=== PATIENT | female | born 1945 | race African-American/Black ===

== ENCOUNTER 2018-11-14 17:24 | Emergency (ER) | payer OTHER ==
--- OUTSIDE RECORDS SUMMARY | 2018-11-14 17:26 | XMS REPORT | Clinical Summary ---
:1945 Author Organization [facility] Address [address] [place] [address] Care Team Providers Name Role Phone Asked, No Pcp Primary Care Provider Unavailable Allergies Active Allergy Reactions Severity Noted Date Comments No Known Drug Allergies 02/15/2016 Medications Not on file Active Problems Problem Noted Date HTN (hypertension) 03/19/2016 Diabetes mellitus 03/19/2016 Gout 03/19/2016 TIA (transient ischemic attack) 03/19/2016 Overview: 2016 Anemia of chronic disease 02/20/2016 Anemia of renal disease 02/15/2016 Chronic renal failure 02/15/2016 Family History Medical History Relation Name Comments Diabetes Brother Prostate cancer Brother Malignant tumor of prostate; 2 brothers Lung cancer Father Malignant tumor of lung Diabetes Maternal Grandmother Lung cancer Mother Malignant tumor of lung Sickle cell anemia Other nephew Breast cancer Sister Diabetes Sister Relation Name Status Comments Brother Father (Age 67) smoker Maternal Grandmother Mother (Age 60's) Smoker Other nephew Alive Sister (Age 70) Sister Social History Tobacco Use Types Packs/Day Years Used Date Unknown If Ever Smoked Sex Assigned at Date Recorded Not on file Job Start Date Occupation Industry Not on file Not on file Not on file Travel History Travel Start Travel End No recent travel history available. Last Filed Vital Signs Not on file Plan of Treatment Health Maintenance Due Date Last Done Comments DIABETIC RETINAL EYE EXAM 1945 DIABETIC FOOT EXAM 12/08/1953 BREAST CANCER SCREENING 12/08/1993 COLON CANCER SCREENING 12/08/1993 SHINGLES VACCINES (#1) 12/08/1993 65+ PNEUMOCOCCAL VACCINE (1 of 2 - PCV13) 12/08/2008 PNEUMOCOCCAL POLYSACCHARIDE VACCINE AGE 65 AND OVER 12/08/2008 INFLUENZA VACCINE 04/07/2018 Results Not on fileafter 11/13/2017 Insurance Payer Benefit Plan / Group Subscriber ID Type Phone Address MEDICARE MEDICARE PART A AND B xxxxxxxxxx Medicare [place], [place] Advance Directives Patient has advance care planning documents on file. For more information, please contact:Dilan Mcdonald[address] [place] [address]
[2018-11-14] MEDS ORDERED: LEVALBUTEROL 1.25 MG/3 ML NEB ONE (18:37)
[2018-11-14 18:53] LABS: Protime INR 1.11
[2018-11-14 18:54] LABS: Absolute Lymphocytes (CBC) 2.8 K/uL (0.7-4.9); Absolute Monocytes 0.7 K/uL (0.1-1.3); Absolute Neutrophil 7.2 K/uL (1.8-8.0); Basophils % 0.4 % (0-1.3); Eosinophils % 1.5 % (0-4.4); Hematocrit 32.5 % (36.0-45.0); Lymphocytes % 25.6 % (15.3-44.8); MPV 8.2 fL (7.6-11.3); Monocytes % 6.2 % (3.3-12.3); RBC Red Blood Cell Count 4.49 M/uL (3.86-4.86)
[2018-11-14 19:05] LABS: ALT/SGPT 33 U/L (12-78); AST/SGOT 24 U/L (15-37); Albumin 3.2 g/dL (3.4-5.0); Alkaline Phosphatase 118 U/L (45-117); BUN Blood Urea Nitrogen 32 mg/dL (7-18); Bicarbonate 27 mmol/L (21-32); Bilirubin Direct < 0.1 mg/dL (0-0.2); Bilirubin Total 0.2 mg/dL (0.2-1.0); Glucose Level 100 mg/dL (74-106); Lipase 139 U/L (73-393); Magnesium 2.2 mg/dL (1.8-2.4); NT PRO-BNP 139 pg/mL (<125); Potassium 4.6 mmol/L (3.5-5.1); Sodium Level 139 mmol/L (136-145); Troponin (Emerg Dept Use Only) < 0.02 ng/mL (0.0-0.045)
--- NOTE | 2018-11-14 19:22 | RAD REPORT ---
EXAM DESCRIPTION: CT - CTHCSPWOC - 11/14/2018 6:55 pm CLINICAL HISTORY: Trauma, head and neck injury. headache, fall, syncope COMPARISON: MRI IAC WWO CONTRAST dated 08/20/2012 TECHNIQUE: Axial 5 mm thick images of the head were obtained. Axial 2 mm thick images of the cervical spine were obtained with sagittal and coronal reconstruction images generated and reviewed. All CT scans are performed using dose optimization technique as appropriate and may include automated exposure control or mA/KV adjustment according to patient size. FINDINGS: CT HEAD WITHOUT CONTRAST: Significant increased density is seen within the dural venous sinuses including the superior sagittal sinus, inferior sagittal sinus, straight sinus, vein of Freddy and transverse sinuses.The amount of d ensity within these dural venous sinuses is greater than typically seen and could represent dural uri ous sinus thrombosis.No acute hemorrhage, midline shift or hydrocephalus. Mild mucoperiosteal thickening of both maxillary antra.The paranasal sinuses and mastoids are otherwi se clear.The calvarium is intact. CT CERVICAL SPINE WITHOUT CONTRAST: No fracture or subluxation.Multilevel degenerative change ossification of the posterior longitudinal ligament noted resulting in moderate cervical canal narrowing.No prevertebral soft tissues swelling i s identified. IMPRESSION: The dural venous sinuses demonstrate increased density, greater than typically seen, and suspicious for dural venous sinus thrombosis.MRI and MRV of the brain is recommended for further ass essment. Multilevel degenerative spondylosis of the cervical spine is present with findings of OPLL noted resu lting in significant central canal stenosis. An acute fracture is not seen. Findings were discussed with JEANNA Montanez in the ER 7:15 p.m. 11/14/2018 by telephone.
--- NOTE | 2018-11-14 19:41 | RAD REPORT ---
EXAM DESCRIPTION: RAD - Chest Single View - 11/14/2018 7:31 pm CLINICAL HISTORY: cough, fever Chest pain. COMPARISON: No comparisons FINDINGS: Portable technique limits examination quality. The lungs are grossly clear. The heart is normal in size. No displaced fractures. IMPRESSION: No acute intrathoracic process suspected.
--- NOTE | 2018-11-14 19:42 | RAD REPORT ---
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 No acute fracture or dislocation s een. Lumbosacral degenerative changes are present.
--- NOTE | 2018-11-14 21:11 | ER ---
Nurse's Notes [facility] Name: Deborah Ortiz Age: 72 yrs Sex: Female : 1945 Arrival Date: 11/14/2018 Time: 17:25 Bed 18 Private MD: Diagnosis: Syncope and collapse;Headache;Acute upper respiratory infection, unspecified Presentation: 11/14 17:45 Presenting complaint: Child states: Cough congestion x 1 week, pt also reports syncopal ph episode on Sat after vomiting, states " I threw up and then I woke up on the floor in between the tub and the toilet." Pt reports headache to R side of head x approx 2 days, daughter also reports that pt has been very drowsy and lethargic today. Transition of care: patient was not received from another setting of care. Onset of symptoms was November 14, 2018. Risk Assessment: Do you want to hurt yourself or someone else? Patient reports no desire to harm self or others. Initial Sepsis Screen: Does the patient meet any 2 criteria? No. Patient's initial sepsis screen is negative. Care prior to arrival: None. 17:45 Method Of Arrival: Wheelchair ph 17:45 Acuity: AIDAN 3 ph 18:30 Initial Sepsis Screen: Does the patient meet any 2 criteria? Does the patient have a sv suspected source of infection? No. Patient's initial sepsis screen is negative. Historical: - Allergies: 17:50 No Known Allergies; ph - PMHx: 17:50 Asthma; Hyperlipidemia; Hypertension; Kidney disease stage 3; TIA; ph - Immunization history:: Adult Immunizations up to date. - Social history:: Smoking status: Patient/guardian denies using tobacco. - Ebola Screening: : No symptoms or risks identified at this time. Screenin:54 Abuse screen: Denies threats or abuse. Nutritional screening: No deficits noted. tw2 Tuberculosis screening: No symptoms or risk factors identified. Fall Risk Secondary diagnosis (15 points) impaired mobility. Assessment: 18:30 General: Appears in no apparent distress. uncomfortable, obese, well developed, sv Behavior is calm, cooperative, appropriate for age. Pain: Complains of pain in right frontal area and right temporal area Pain currently is 5 out of 10 on a pain scale. Quality of pain is described as throbbing. Neuro: Level of Consciousness is awake, alert, obeys commands, Oriented to person, place, time, situation, Moves all extremities. Full function Gait is steady, Speech is normal. Cardiovascular: Heart tones S1 S2 present. Respiratory: Airway is patent Respiratory effort is even, unlabored, Respiratory pattern is regular, symmetrical, Breath sounds with wheezes bilaterally. Derm: Skin is pink, warm \\T\\ dry. 19:15 General: Appears in no apparent distress. uncomfortable, Behavior is calm, cooperative, tl2 appropriate for age. Pain: Complains of pain in right temporal area and right frontal area Pain currently is 3 out of 10 on a pain scale. Neuro: Level of Consciousness is awake, alert, obeys commands, Oriented to person, place, time, situation, Moves all extremities. Full function Speech is normal, Facial symmetry appears normal, Reports Pt daughter reports that pt has been having lapses in memory and fell yesterday. Cardiovascular: Denies chest pain. Respiratory: Airway is patent Respiratory effort is even, unlabored, Respiratory pattern is regular, symmetrical, Breath sounds with wheezes bilaterally. GI: Reports nausea. Derm: Skin is pink, warm \\T\\ dry. 21:30 Reassessment: Patient appears in no apparent distress at this time. Patient and/or tl2 family updated on plan of care and expected duration. Pain level reassessed. Patient is alert, oriented x 3, equal unlabored respirations, skin warm/dry/pink. 22:30 Reassessment: Patient appears in no apparent distress at this time. Patient and/or tl2 family updated on plan of care and expected duration. Pain level reassessed. Patient is alert, oriented x 3, equal unlabored respirations, skin warm/dry/pink. 23:00 Reassessment: Patient appears in no apparent distress at this time. pt stable and ready tl2 for transport. Vital Signs: 17:48 BP 160 / 73; Pulse 83; Resp 20; Temp 97.2; Pulse Ox 98% ; Weight 127.01 kg; ph 19:15 BP 139 / 52; Pulse 85; Resp 22; Pulse Ox 99% on R/A; tl2 20:31 BP 148 / 56; Pulse 85; Resp 17; Pulse Ox 100% on R/A; mt 21:56 BP 158 / 62; Pulse 84; Resp 20; Pulse Ox 100% on R/A; mt ED Course: 17:25 Patient arrived in ED. mr 17:48 Triage completed. ph 17:50 Arm band placed on. ph 18:09 [facility] 18:09 Nic Lazcano MD is Attending Physician. m 18:24 Miriam Pedersen, RN is Primary Nurse. sv 18:30 Patient has correct armband on for positive identification. Placed in gown. Bed in low sv position. Call light in reach. Adult w/ patient. Pulse ox on. NIBP on. Door closed. Warm blanket given. Head of bed elevated. 18:30 Initial lab(s) drawn, by me, sent to lab. Flu and/or RSV swab sent to lab. Inserted sv saline lock: 20 gauge in right antecubital area, using aseptic technique. Blood collected. Flushed right antecubital with 5 ml normal saline. 18:[address] kw1 18:46 CT completed. Patient tolerated procedure well. Patient moved back from CT. kw1 18:55 CT Head C Spine In Process Unspecified. EDMS 18:[address] back from [address]. sv 19:08 Report given to Nicki GIVENS. sv 19:08 X-ray(s) taken. sv 19:18 Primary Nurse role handed off by Miriam Pedersen, CHON sv 19:18 Side rails up X2. Placed in gown. Bed in low position. Call light in reach. Warm mh5 blanket given. manager compliance on. Pulse ox on. NIBP on. 19:18 EKG done, by ED staff, reviewed by Jameel MEEKS. 5 19:31 XRAY Chest (1 view) In Process Unspecified. EDMS 19:31 Pelvis XRAY In Process Unspecified. EDMS 19:55 attempted to initiate a transfer with Zahra at the [facility]/ per Zahra they are at eb capacity and are unable to accept any transfers at this time. 19:56 initiated a transfer with Betzaida at the [facility] transfer center. eb 20:33 Nicki Escalona, RN is Primary Nurse. tl2 20:50 called the [facility] transfer center to check on the status on of the transfer / as soon as eb they get a hold of the neurologist zone manager she will call us back. 21:05 connected the neurologist zone manager Brook Patel from [facility] with Jameel MEEKS for patient eb transfer consultation. 21:42 administrative approval given by Kristi Soliman at the [facility] transfer center/ Dr. Barker eb has accepted the patient transfer/ patient going to [facility] 11a 1115/ report to be called to [phone]. 23:00 No provider procedures requiring assistance completed. Patient transferred, IV remains tl2 in place. Administered Medications: 18:30 Drug: Xopenex (3) 1.25 mg Route: Inhalation; sv 19:00 Follow up: Response: No adverse reaction sv 22:13 Drug: Tylenol 650 mg Route: PO; tl2 23:15 Follow up: Response: No adverse reaction tl2 Outcome: 21:10 ER care complete, transfer ordered by MD. moreno 23:00 Transferred by ground EMS to [facility], Transfer form tl2 completed. 23:00 Condition: stable 23:00 Discharge instructions given to patient, family, Instructed on the need for transfer. 23:16 Patient left the ED. tl2 Signatures: Dispatcher [employer] Miriam Mclean, RN RN Jameel Voss PA PA jmm Rivera, Mary mr MedinaNora, RN RN Twyla Camacho RN RN 2 Nicki Escalona RN RN gege2 Catherine Mar [facility], [facility] Missy [facility] Kaya Soto Corrections: (The following items were deleted from the chart) 21:11 21:05 connected the neurologist zone manager from [facility] with Jameel MEEKS for patient transfer eb consultation. eb
--- NOTE | 2018-11-14 21:11 | EDPHYS ---
Physician Documentation [facility] Name: Deborah Ortiz Age: 72 yrs Sex: Female : 1945 Arrival Date: 11/14/2018 Time: 17:25 Bed 18 Private MD: ED Physician Nic Lazcano HPI: 11/14 18:10 This 72 yrs old Black Female presents to ER via Wheelchair with complaints of Fall jmm Injury, Cough, Congestion, Fever. 18:10 Details of fall: The patient fell from seated position, toilet. Onset: The jmm symptoms/episode began/occurred acutely, last night. This is a 72 year old female with a history of lupus, asthma, htn that presents to the ED with complaints of headache beginning this past Thursday with a syncopal episode this morning at approx 0100. Patient was sitting on toilet, vomited twice and passed out. Patient complaints of right sided headache. Patient also complaints of cough, congestion, wheezing for the past week. . Historical: - Allergies: 17:50 No Known Allergies; ph - PMHx: 17:50 Asthma; Hyperlipidemia; Hypertension; Kidney disease stage 3; TIA; ph - Immunization history:: Adult Immunizations up to date. - Social history:: Smoking status: Patient/guardian denies using tobacco. - Ebola Screening: : No symptoms or risks identified at this time. ROS: 18:10 Eyes: Negative for injury, pain, redness, and discharge, Cardiovascular: Negative for jmm chest pain, palpitations, and edema. 18:10 Constitutional: Positive for body aches, chills. 18:10 Respiratory: Positive for cough. 18:10 Abdomen/GI: Positive for nausea and vomiting. 18:10 Neuro: Positive for headache, syncope. 18:10 All other systems are negative. Exam: 18:10 Head/Face: atraumatic. Eyes: EOMI, no conjunctival erythema appreciated ENT: Moist jmm Mucus Membranes Neck: Trachea midline, Supple Chest/axilla: Normal chest wall appearance and motion. 18:10 Constitutional: The patient appears in no acute distress, alert, awake. 18:10 Cardiovascular: Rate: normal, Rhythm: regular. 18:10 Respiratory: the patient does not display signs of respiratory distress, Respirations: normal, Breath sounds: wheezing: that is mild, is scattered. 18:10 Abdomen/GI: Inspection: abdomen appears normal, Bowel sounds: normal, Palpation: abdomen is soft and non-tender. 18:10 Musculoskeletal/extremity: ROM: intact in all extremities. 18:10 Skin: Appearance: Color: normal in color. 18:10 Neuro: Orientation: is normal, Mentation: is normal, Memory: is normal, Gait: is steady. 18:10 Psych: Behavior/mood is pleasant, cooperative. Vital Signs: 17:48 BP 160 / 73; Pulse 83; Resp 20; Temp 97.2; Pulse Ox 98% ; Weight 127.01 kg; ph 19:15 BP 139 / 52; Pulse 85; Resp 22; Pulse Ox 99% on R/A; tl2 20:31 BP 148 / 56; Pulse 85; Resp 17; Pulse Ox 100% on R/A; mt 21:56 BP 158 / 62; Pulse 84; Resp 20; Pulse Ox 100% on R/A; mt MDM: 18:10 Patient medically screened. cuong 21:08 Data reviewed: vital signs, nurses notes. Counseling: I had a detailed discussion with tiffanie the patient and/or guardian regarding: the historical points, exam findings, and any diagnostic results supporting the discharge/admit diagnosis, lab results, radiology results, the need to transfer to another facility. ED course: I discussed the patient with Dr. Farnsworth whom accepted transfer. 21:43 ED course: Unable to transfer to [facility]. Lack of capacity. . [facility] 11/14 18:23 Order name: Basic Metabolic Panel; Complete Time: 19:18 [facility] 11/14 18:23 Order name: CBC with Diff; Complete Time: 19:03 [facility] 11/14 18:23 Order name: LFT's; Complete Time: 19:18 [facility] 11/14 18:23 Order name: Magnesium; Complete Time: 19:18 [facility] 11/14 18:23 Order name: NT PRO-BNP; Complete Time: 19:18 [facility] 11/14 18:23 Order name: PT-INR; Complete Time: 19:03 [facility] 11/14 18:23 Order name: Troponin (emerg Dept Use Only); Complete Time: 19:18 [facility] 11/14 18:23 Order name: XRAY Chest (1 view); Complete Time: 19:43 [facility] 11/14 18:23 Order name: Lipase; Complete Time: 19:18 [facility] 11/14 18:23 Order name: CT Head C Spine; Complete Time: 19:30 [facility] 11/14 18:23 Order name: Pelvis XRAY; Complete Time: 19:43 [facility] 11/14 18:24 Order name: Flu; Complete Time: 19:03 [facility] 11/14 18:23 Order name: EKG; Complete Time: 18:24 [facility] 11/14 18:23 Order name: Cardiac monitoring; Complete Time: 19:07 [facility] 11/14 18:23 Order name: EKG - Nurse/Tech; Complete Time: 19:07 [facility] 11/14 18:23 Order name: IV Saline Lock; Complete Time: 18:52 [facility] 11/14 18:23 Order name: Labs collected and sent; Complete Time: 18:52 [facility] 11/14 18:23 Order name: O2 Per Protocol; Complete Time: 18:52 [facility] 11/14 18:23 Order name: O2 Sat Monitoring; Complete Time: 18:52 jm Administered Medications: 18:30 Drug: Xopenex (3) 1.25 mg Route: Inhalation; sv 19:00 Follow up: Response: No adverse reaction sv 22:13 Drug: Tylenol 650 mg Route: PO; tl2 23:15 Follow up: Response: No adverse reaction tl2 Disposition: 11/15 09:55 Co-signature as Attending Physician, Nic Lazcano MD I agree with the assessment and [facility] plan of care. Disposition: 11/14/18 21:10 Transfer ordered to [facility]. Diagnosis are Syncope and collapse, Headache, Acute upper respiratory infection, unspecified. - Reason for transfer: Higher level of care. - Accepting physician is [facility]. - Condition is Stable. - Problem is new. - Symptoms have improved. Signatures: Dispatcher [employer] Miriam Mclean RN RN sv Anderson, Corey, MD MD cha Mickail, Joel, PA PA jmm Hall, Patricia, RN RN ph Knox, Taylor, RN RN tl2 Corrections: (The following items were deleted from the chart) 11/14 23:16 21:10 11/14/2018 21:10 Transfer ordered to [facility]. Diagnosis is Syncope and tl2 collapse; Headache; Acute upper respiratory infection, unspecified. Reason for transfer: Higher level of care. Accepting physician is [facility]. Condition is Stable. Problem is new. Symptoms have improved. tiffanie
[2018-11-14] MEDS ORDERED: ACETAMINOPHEN 325 MG TABLET ONE (22:08)
--- NOTE | 2018-11-15 08:35 | EKG ---
Test Date: 2018-11-14 Test Time: 18:12:17 Tech Intern: DOLORES MEASUREMENT RESULTS: Intervals: Rate: 82 CO: 206 QRSD: 88 QT: 384 QTc: 448 [place]: P: 64 CO: 206 QRS: -25 T: 37 INTERPRETIVE STATEMENTS: Normal sinus rhythm Possible pulmonary disease pattern Borderline ECG No previous ECG available for comparison Electronically Signed On 11-15-18 08:35:17 CDT by Salo Lerner
== END 2018-11-14 23:16 | disposition short-term general hospital (02) ==
LOC: ER 17:24
DX: J06.9 Acute upper respiratory infection, unspecified (principal); R55 Syncope and collapse; W18.11XA Fall from or off toilet without subsequent striking against object, initial encounter; Y93.9 Activity, unspecified; Y92.9 Unspecified place or not applicable; I12.9 Hypertensive chronic kidney disease with stage 1 through stage 4 chronic kidney disease, or unspecified chronic kidney disease; N18.3 Chronic kidney disease, stage 3 (moderate)
CPT/HCPCS: 36415; 70450; 71045; 72125; 72170; 80048; 80076; 83690; 83735; 83880; 84484; 85025; 85610; 87804; 93005; 99285